=== PATIENT | female | born 1995 | race Caucasian/White ===

== ENCOUNTER 2017-08-12 21:15 | Emergency (ER) | payer OTHER ==
[~2017-08-12] VITALS: Ht 175.3 cm; Wt 147.4 kg
[2017-08-12 22:01] VITALS: BP 147/91
[2017-08-12] MEDS ORDERED: AUGMENTIN 875-1 EACH PO (22:18)
== END 2017-08-12 22:47 | disposition home or self-care (01) ==
LOC: ER 21:15
DX: S61.256A Open bite of right little finger without damage to nail, initial encounter (principal); W64.XXXA Exposure to other animate mechanical forces, initial encounter; Y93.89 Activity, other specified; Y92.89 Other specified places as the place of occurrence of the external cause; Y99.8 Other external cause status